=== PATIENT | male | born 1975 | race Caucasian/White ===

== ENCOUNTER 2017-09-02 08:19 | Emergency (ER) | payer SELFPAY ==
[~2017-09-02] VITALS: Ht 167.6 cm; Wt 68.0 kg
[2017-09-02] MEDS ORDERED: LORAZEPAM 1 MG TABLET PO ONE (08:30)
--- NOTE | 2017-09-02 08:30 | NUR ---
BIB [facility] FROM BUS STOP: ANXIETY S/P "SOME ONE SPRAYED WHITE SUBSTANCE IN MY FACE" PATIENT IS VERY RESTLESS AND DIAPHORETIC. BREATHING EVEN, SLIGHTLY LABORED. NO SOB. VITALS STABLE. SAFETY AND COMFORT MEASURES IN PLACE AWAITING MD ORDERS.
[2017-09-02] MEDS ORDERED: LORAZEPAM 1 MG TABLET ONE (08:33)
--- NOTE | 2017-09-02 08:37 | NUR ---
PATIENT MEDICATED PER MD ORDERS. EMT AT BEDSIDE FOR EKG.
[2017-09-02 09:33] VITALS: BP 133/81
--- NOTE | 2017-09-02 09:35 | NUR ---
Patient discharged to home in stable condition. Written and verbal after care instructions given. Patient verbalizes understanding of instruction.
== END 2017-09-02 09:34 | disposition home or self-care (01) ==
LOC: ER 08:20
DX: T50.995A Adverse effect of other drugs, medicaments and biological substances, initial encounter (principal); F41.1 Generalized anxiety disorder; F32.9 Major depressive disorder, single episode, unspecified; Y92.89 Other specified places as the place of occurrence of the external cause
CPT/HCPCS: 93005; 99284; A4606; Z7610